=== PATIENT | male | born 1960 | race Caucasian/White ===

== ENCOUNTER → 2017-12-03 | Outpatient (CLI) | payer OTHER ==
[~2017-12-03] VITALS: Ht 165.1 cm; Wt 73.2 kg
[~2017-12-03] MED LIST: BENZOCAINE 20% ORAL SPR 60 ML CAN OROPHARYNG ONE; CETI-1 PO; LIDOCAINE HCL 2% JELLY 5 ML SYRINGE TOPICAL ONE; PANT20TA2 PO; PROP10TA6 PO
[2017-12-03 08:08] VITALS: BP 111/66; PULSE 60; RESP 18; TEMP 98.1; O2SAT 98
== END ==
LOC: HSDC 06:46
PROVIDERS: ATTEND Internal Medicine Gastroenterology
DX: R13.10 Dysphagia, unspecified (principal); K22.4 Dyskinesia of esophagus
CPT/HCPCS: 91010